=== PATIENT | female | born 1945 | race Caucasian/White ===

== ENCOUNTER 2018-02-17 17:34 | Inpatient (IN) | payer OTHER ==
[~2018-02-17] VITALS: Ht 149.9 cm; Wt 69.0 kg
[2018-02-17 17:56] VITALS: Ht 149.9 cm; Wt 69.0 kg
[2018-02-17 18:47] LABS: BASOPHIL % 0.2 % (0-2); PLATELET COUNT 242 x10^3mcL (130-400)
[2018-02-17 18:50] LABS: RED CELL DISTRIBUTION WIDTH 14.6 % (11.5-14.5)
[2018-02-17 19:27] LABS: UA SPECIFIC GRAVITY 1.025 (1.005-1.035); microscopic required? YES; urine erythrocyte 2+ (NEGATIVE)
[2018-02-17 19:39] LABS: AMPHETAMINE QUAL UR NONE DETECTED (NEG <=1000)
[2018-02-17 19:49] LABS: ALBUMIN 3.5 g/dL (3.4-5.0); ALKALINE PHOSPHATASE 69 U/L (46-116); ALT/SGPT 35 U/L (14-59); AMYLASE 34 U/L (25-115); AST/SGOT 40 U/L (15-37); BILIRUBIN TOTAL 0.59 mg/dL (0.20-1.00); CALCIUM 8.8 mg/dL (8.5-10.1); CHLORIDE SERUM 96 mmol/L (98-107); CHOLESTEROL 189 mg/dL (<200); CREATININE SERUM 0.9 mg/dL (0.6-1.0); GLUCOSE SERUM 99 mg/dL (74-106); HDL CHOLESTEROL 50 mg/dL (40-60); LIPASE 114 IU/L (73-393); SODIUM SERUM 135 mmol/L (136-145)
[2018-02-17 19:51] LABS: T4(THYROXINE) 4.2 ug/dL (4.7-13.3)
[2018-02-17 19:52] LABS: POTASSIUM SERUM 2.9 mmol/L (3.5-5.1)
[2018-02-17] MEDS ORDERED: ARMOUR THYROID30 MG PO (20:34)
[2018-02-17 21:03] LABS: CHOLESTEROL/HDL RATIO 3.8; PHOSPHOROUS 3.4 mg/dL (2.5-4.9)
[2018-02-17 21:13] LABS: FREE T4 0.82 ng/dL (0.76-1.46); FREE THYROXINE INDEX 1.7 ug/dL (1.4-4.5); T4(THYROXINE) 4.7 ug/dL (4.7-13.3)
[2018-02-17 21:14] LABS: T3 TOTAL 0.6 ng/mL
[2018-02-17 21:32] VITALS: BP 147/51
[2018-02-18 00:40] VITALS: BP 147/51
[2018-02-18 06:14] VITALS: BP 144/63
[2018-02-18 06:54] LABS: BASOPHIL % 0.4 % (0-2); PLATELET COUNT 214 x10^3mcL (130-400); RED CELL DISTRIBUTION WIDTH 14.1 % (11.5-14.5)
[2018-02-18 07:01] LABS: CALCIUM 7.9 mg/dL (8.5-10.1); CARBON DIOXIDE 25.6 mmol/L (21-32); CHLORIDE SERUM 104 mmol/L (98-107); CREATININE SERUM 0.6 mg/dL (0.6-1.0); GLUCOSE SERUM 156 mg/dL (74-106); PHOSPHOROUS 3.6 mg/dL (2.5-4.9); POTASSIUM SERUM 4.2 mmol/L (3.5-5.1); SODIUM SERUM 136 mmol/L (136-145)
[2018-02-18 09:45] VITALS: BP 147/63
[2018-02-18 12:00] VITALS: BP 153/79
[2018-02-18 17:17] VITALS: BP 124/59
[2018-02-18 22:22] VITALS: BP 122/56
[2018-02-19 05:50] VITALS: BP 143/73
[2018-02-19 08:06] LABS: BASOPHIL % 0.3 % (0-2); PLATELET COUNT 219 x10^3mcL (130-400); RED CELL DISTRIBUTION WIDTH 14.1 % (11.5-14.5)
[2018-02-19 08:21] LABS: CARBON DIOXIDE 24.3 mmol/L (21-32); CHLORIDE SERUM 107 mmol/L (98-107); CREATININE SERUM 0.6 mg/dL (0.6-1.0); GLUCOSE SERUM 91 mg/dL (74-106); POTASSIUM SERUM 3.5 mmol/L (3.5-5.1); SODIUM SERUM 138 mmol/L (136-145)
[2018-02-19 09:03] VITALS: BP 145/64
[2018-02-19] MEDS ORDERED: LEVAQUIN750 MG PO (11:52)
[2018-02-19] MEDS ORDERED: BD LACTINEX1.4 MG PO (11:53)
[2018-02-19 12:29] VITALS: BP 145/64
[2018-02-19 13:44] VITALS: BP 144/78
== END 2018-02-19 17:00 | disposition home health service (06) | DRG 689 ==
LOC: ED 17:34 → DU 20:28
PROVIDERS: Emergency Medicine; Family Medicine
DX: N39.0 Urinary tract infection, site not specified (principal); G93.41 Metabolic encephalopathy; N17.0 Acute kidney failure with tubular necrosis; E87.1 Hypo-osmolality and hyponatremia; E87.6 Hypokalemia; R80.8 Other proteinuria; R31.29 Other microscopic hematuria; J44.9 Chronic obstructive pulmonary disease, unspecified; I51.7 Cardiomegaly; E06.3 Autoimmune thyroiditis; E78.5 Hyperlipidemia, unspecified; R73.03 Prediabetes; Z68.34 Body mass index [BMI] 34.0-34.9, adult
CPT/HCPCS: 36600; 82962; 83880; 84439; 94150; 97110-GP; 97116-GP; 97530-GP; J1956; J2930; J3480; J7030; J7613; J7620; J7644; J8597; Q0092

== ENCOUNTER 2019-02-26 15:46 | Emergency (ER) | payer OTHER ==
[~2019-02-26] VITALS: Ht 149.9 cm; Wt 75.3 kg
[~2019-02-26 15:46] MED LIST: ARMOUR THYROID30 MG PO; BD LACTINEX1.4 MG PO; LEVAQUIN750 MG PO
[2019-02-26 15:50] VITALS: Ht 149.9 cm; Wt 75.3 kg
[2019-02-26 18:47] VITALS: BP 134/89
== END 2019-02-26 18:47 | disposition home or self-care (01) ==
LOC: ED 15:46
DX: R07.89 Other chest pain (principal); N64.4 Mastodynia; H57.89 Other specified disorders of eye and adnexa; Z88.5 Allergy status to narcotic agent
CPT/HCPCS: Q0092